=== PATIENT | male | born 1990 | race Caucasian/White ===

== ENCOUNTER 2018-08-03 22:08 | Emergency (ER) | payer MEDICARE, MEDICAID ==
[~2018-08-03] VITALS: Ht 180.3 cm; Wt 54.3 kg
[2018-08-03] MEDS ORDERED: TETanus/Pertussis (Acell)/Diphther VAC/PF (Tdap-Adult) 0.5ml syringe IM ONE (23:00)
[2018-08-03] MEDS ORDERED: LIDOcaine 4% (40 mg/ml) topical solution 50ml TP ONE (23:00)
[2018-08-03] MEDS ORDERED: vancomycin/NS 1 GM ADD-VANTAGE 250 ML IV ONE (23:00)
[2018-08-03] MEDS ORDERED: gentamicin 0.1% topical ointment 15gm TP SCH (23:00)
[2018-08-04] MEDS ORDERED: ACET-3068 PO (00:08)
[2018-08-04] MEDS ORDERED: CEPH500C5 PO (00:08)
--- NOTE | 2018-08-04 00:13 | NUR ---
PATIENT PROVIDED SANDWHICH BAG WITH DRINK; PT APPEARS ANOREXIC WITH PROMINENT BONES
[2018-08-04 01:44] VITALS: BP 107/58
--- NOTE | 2018-08-04 01:47 | NUR ---
wound care was vasoline guaze non-adherent dressing,kerlex and alfa wrap x 3 for 3 wounds
== END 2018-08-04 01:46 | disposition home or self-care (01) ==
LOC: ER 22:09
DX: L03.116 Cellulitis of left lower limb (principal); L03.115 Cellulitis of right lower limb; F17.200 Nicotine dependence, unspecified, uncomplicated
CPT/HCPCS: 90471; 90715; 96365; 97597; 99284; J3370

== ENCOUNTER 2024-01-06 22:10 | Emergency (ER) | payer MEDICARE, MEDICAID ==
[~2024-01-06] VITALS: Ht 182.9 cm; Wt 56.8 kg
[~2024-01-06 22:10] MED LIST: IBUP-1985 PO
[2024-01-07 00:32] LABS: HEMATOCRIT 38.3 % (42.0-52.0); HEMOGLOBIN 12.9 g/dl (14.0-17.9)
[2024-01-07 00:33] LABS: BASOPHILS # (AUTO) 0.1 X10'3 (0-0.2); BASOPHILS % (AUTO) 0.8 % (0-1); EOSINOPHILS # (AUTO) 0.1 X10'3 (0-0.9); EOSINOPHILS % (AUTO) 1.3 % (0-6); LYMPHOCYTES # (AUTO) 1.6 X10'3 (1.1-4.8); LYMPHOCYTES % (AUTO) 22.5 % (21-51); MEAN CORPUSCULAR HEMOGLOBIN 29.2 PG (27.0-31.0); MEAN CORPUSCULAR HGB CONC 33.8 g/dL (33.0-36.5); MEAN CORPUSCULAR VOLUME 86.4 FL (78-98); MEAN PLATELET VOLUME 6.9 FL (7.4-10.4); MONOCYTES # (AUTO) 0.6 X10'3 (0-0.9); MONOCYTES % (AUTO) 8.6 % (2-12); NEUTROPHILS # (AUTO) 4.8 X10'3 (1.8-7.7); NEUTROPHILS % (AUTO) 66.8 % (42-75); PLATELET COUNT 349 X10'3 (140-440); RED BLOOD COUNT 4.43 X10'6 (4.70-6.10); RED CELL DISTRIBUTION WIDTH 14.8 % (11.5-14.5); WHITE BLOOD COUNT 7.2 X10'3 (4.5-11.0)
[2024-01-07 00:39] LABS: ALBUMIN 3.2 G/DL (3.4-5.0); ANION GAP 9 (8-16); BLOOD UREA NITROGEN 8 MG/DL (7-18); BUN/CREATININE RATIO 8.3 (10.0-20.0); CALCIUM 9.1 MG/DL (8.5-10.1); CHLORIDE 102 MMOL/L (99-107); CREATININE 0.96 MG/DL (0.60-1.10); GLUCOSE 101 MG/DL (70-104); POTASSIUM 3.3 MMOL/L (3.5-5.1); SODIUM 140 MMOL/L (135-145); TOTAL CARBON DIOXIDE 29.2 MMOL/L (24-32); eCRCL 87 ML/MIN; eGFR 90 ML/MIN
[2024-01-07] MEDS ORDERED: iohexol 300mg/ml 100ml inj. ONE (00:44)
[2024-01-07 04:57] LABS: BILIRUBIN,URINE NEGATIVE (Neg); CLARITY,URINE CLEAR (Clear); COLOR,URINE YELLOW (Yellow); GLUCOSE, URINE NEGATIVE (Neg); KETONES,URINE NEGATIVE (Neg); LEUKOCYTE ESTERASE ,URINE NEGATIVE (Neg); NITRITES, URINE NEGATIVE (Neg); OCCULT BLOOD,URINE NEGATIVE (Neg); PROTEIN,URINE NEGATIVE (Neg); UROBILINOGEN,URINE 0.2 E.U/dL (0.2-1.0)
[2024-01-07 04:58] LABS: UA COLLECTION TYPE URINAL
[2024-01-07] MEDS ORDERED: HYDR-3973 PO (08:45)
[2024-01-07 09:37] VITALS: BP 104/62; PULSE 78; RESP 14; TEMP 98; O2SAT 96
== END 2024-01-07 09:41 | disposition home or self-care (01) ==
LOC: ER 22:10
DX: S90.911A Unspecified superficial injury of right ankle, initial encounter (principal); Z79.1 Long term (current) use of non-steroidal anti-inflammatories (NSAID); Z79.899 Other long term (current) drug therapy; X58.XXXA Exposure to other specified factors, initial encounter; Y93.89 Activity, other specified; Y92.89 Other specified places as the place of occurrence of the external cause; Y99.8 Other external cause status
CPT/HCPCS: 36415; 71045; 73701; 80048; 81003; 83605; 83735; 84145; 85025; 85651; 86140; 87040; 93005; 99285; A4565; A6402; A6449; Q9967

== ENCOUNTER 2024-11-22 13:11 | Emergency (ER) | payer MEDICARE, MEDICAID ==
[~2024-11-22] VITALS: Ht 182.9 cm; Wt 63.6 kg
[2024-11-22 13:11] VITALS: PULSE 78; TEMP 97.9; O2SAT 99
[~2024-11-22 13:11] MED LIST changes: +DOCU-148 PO; -IBUP-1985 PO
[2024-11-22 13:58] VITALS: RESP 16
[2024-11-22] MEDS: morphine 4 MG/ML inj SYRINge IM ONE (13:58)
[2024-11-22] MEDS: LIDOcaine 1% 30ml preserv. free vial SQ STA (13:58)
--- NOTE | 2024-11-22 14:26 | RADIOLOGY REPORT ---
EXAM: DI FOREARM,INCL.ONE JOINT INDICATION: dog bite TECHNIQUE: 2 views of the forearm COMPARISON: None FINDINGS/IMPRESSION: No radiographic evidence of an acute osseous abnormality. There is no acute fracture, osseous malalig nment, or aggressive focal osseous lesion. Soft tissue emphysema of the radial aspect of the proximal forearm. No definitive radiopaque foreign body.
--- NOTE | 2024-11-22 14:33 | Physician Documentation ---
History of Present Illness ~ Chief Complaint: Bite-animal Stated Complaint: DOG BITE Time Seen by MD: 13:24 Primary Medical Doctor: none HPI 34-year-old male presents to the ED with a complaint of left forearm pain secondary dog bite this afternoon. Patient states it was a type of pit bull. Is developmentally delayed. And crying during interview.; Day of Onset: November 22, 2024 Tetanus within 5 years?: No Medication Reconciliation Allergies: Coded Allergies: No Known Allergies (Unverified , 01/28/24) Scheduled Amox Tr/Potassium Clavulanate 875/125 MG (Augmentin 875/125 MG), 1 TAB PO Q12H Docusate Sodium (Colace), 1 CAP PO Q12H Past Medical History Past Medical History: No Pertinent History Past Surgical History: noncontributory Alcohol Use: None Drug Use: none Lives with: Family Lives In: Home Review of Systems All Other Systems at this time: Reviewed and Negative ROS As stated above in the HPI, otherwise all systems are reviewed and negative. Physical Exam Vital Signs: Temperature: 97.9, Heart Rate: 78, Respiratory Rate: 16, Pulse Oximetry: 99, Weight: 63.640 Oxygen Flow Rate: 0 Physical Exam General: Alert, no apparent distress. HEENT: PERRL, EOMI, no injection, moist mucous membranes. Gastrointestinal: Soft, nontender, nondistended. Bowels sounds present. Extremities: Normal range of motion, no deformity. 4 cm laceration on both anterior and posterior of the left forearm Neurologic: Oriented x4. Psychiatric: Normal mood and affect. Skin: Normal color, warm and dry. No edema, no ecchymosis. Progress Results/Orders Results/Orders Orders - GERRY NIEVES TIMBER ROBBER Laceration/I&D Tray Set Up (11/22/24 ) Forearm,Incl.One Joint (11/22/24 14:00) Completed Orders - GERRY NIEVES [employer]BER [employer]BER Morphine 4mg/Ml Inj. (Morphine Inj.) (11/22/24 13:45) Lidocaine 1% 30ml Vial (Xylocaine 1% Via (11/22/24 13:41) Forearm,Incl.One Joint (11/22/24 14:00) Medications Received in ER Medications (Trade) Dose Ordered Sig/Almita Route PRN Reason Start Time Stop Time Status Last Admin Dose Admin (morphine inj.) 4 mg ONCE ONCE IM 5/19/25 13:45 11/22/24 13:46 DC 11/22/24 13:58 4 MG Vital Signs 11/22/24 11/22/24 13:11 13:58 Temp 97.9 Pulse 78 Resp 16 16 Pulse Ox 99 O2 Flow Rate 0 Medical Decision Making Findings I had full intentions suturing the dog bite on the left forearm to the point that it would allow for drainage. After I injected lidocaine into his arm and m edicated him with morphine the patient and the patient's brother who is also developmentally delayed were adamant that I was not going to suture the patient's wounds. Explained to them with a grade level verbiage the importance of having appropriate medical treatment. He would say they would take the antibiotics. The patient is not conserved has a presented to the ED on their own Differential Dx:Considerations: Include: Abrasion, Allergic reaction, Anaphylaxis, Cellulitis, Contusion, Fracture, Hematoma, Insect envenomation, Laceration, Neurovascular injury, Punture wound, Retained foreign body, Urticaria, Other Departure Disposition: 01 HOME / SELF CARE / HOMELESS Impression: Primary Impression: Dog bite Discharge Instructions: Animal Bite, Adult Additional Instructions: As I explained to you it is very important to have your wound sutured but you have adamantly refused to have this done. I believe you open to infection and potentially a worse outcome. please take the antibiotics as directed Referrals: NO PRIMARY CARE PROVIDER (PCP) Prescriptions Amox Tr/Potassium Clavulanate 875/125 MG (Augmentin 875/125 MG) 875 Mg-125 Mg Tablet 1 TAB PO Q12H for 10 Days, #20 TAB Prov: GERRY NIEVES NP 11/22/24 Education Educated: Patient Educated regarding: diagnosis Signature Scribe Signature: r Attestation: The note accurately reflects work and decisions made by me.Gerry Nieves - DANIEL 11/22/24 14:38 GERRY NIEVES NP November 22, 2024 14:32
[2024-11-22] MEDS ORDERED: AMOX-580 PO (14:39)
== END 2024-11-22 14:59 | disposition home or self-care (01) ==
LOC: ER 13:11
DX: S51.852A Open bite of left forearm, initial encounter (principal); W54.0XXA Bitten by dog, initial encounter; Y93.89 Activity, other specified; Y92.89 Other specified places as the place of occurrence of the external cause; Y99.8 Other external cause status
CPT/HCPCS: 73090; 96372; 99283; A6402; J2270; Z7610; A6449